=== PATIENT | female | born 1955 | race Caucasian/White ===

== ENCOUNTER 2020-05-04 11:52 | Emergency (ER) | payer MEDICARE, MEDICAID, SELFPAY ==
[2020-05-04 11:56] VITALS: BP 106/73; PULSE 70; RESP 12; TEMP 36.6; O2SAT 100; BMI 24.3
--- NOTE | 2020-05-04 12:02 | XR_ITS ---
WS: [id number] Right knee, 3 views, 05/04/2020 Clinical Data: injury Comparison: None. Findings: No fractures or dislocations are seen. There is narrowing of the medial joint compartment. There is s purring of the posterior patella.. The soft tissues are unremarkable. XR/XR knee RT 3V* 68647 Impression: 1. Negative for fracture. 2. Osteoarthritis with medial joint compartment narrowing and posterior patella r spurring.
--- NOTE | 2020-05-04 12:02 | XR_ITS ---
WS: [id number] Right leg including the tibia and fibula, AP and lateral, 05/04/2020 Clinical Data: injury Comparison: None. Findings: No fractures or dislocations are seen. The tibia and fibula are intact. The soft tissues are normal. The visualized right knee and right ankle show no fractures. There is osteoarthritis of the right pat celso. XR/XR tibia fibula RT 2V 09295 Impression: Negative for fracture.
--- NOTE | 2020-05-04 12:02 | XR_ITS ---
WS: [id number] Right ankle, 3 views, 05/04/2020 Clinical Data: injury Comparison: None. Findings: No fractures or dislocations are seen. The ankle mortise is normal. There is a large posterior superi or spur of the right calcaneus which may be from an old injury. The talus is unremarkable.. There is soft tissue swelling over the medial and lateral malleolus. XR/XR ankle RT min 3V* 72034 Impression: 1. Negative for right ankle fracture. 2. Large posterior superior spur of the calcaneus possibly from an old injury. 3. Soft tissue swelling over medial and lateral malleolus.
--- NOTE | 2020-05-04 12:02 | XR_ITS ---
WS: [id number] Right foot, 3 views, 05/04/2020 Clinical Data: injury Comparison: None. Findings: No fractures or dislocations are seen. No bone destruction or erosion is noted. There are flexion def ormities of the toes. There is diffuse osteoporosis.There is a large posterior superior calcaneal spu r probably from an old injury. XR/XR foot RT min 3V* 70239 Impression: 1. Negative for right foot fracture. 2. Flexion deformities of the toes. 3. Posterior superior spur of the calcaneus probably from an old injury. 4. Diffuse osteoporosis.
--- NOTE | 2020-05-04 12:02 | W.ED.EXTPRO ---
HPI - Extremity Problem General: Chief complaint: Extremity Injury, Lower Stated complaint: R LEG SWOLLEN/ WARM post fall Time Seen by Provider: 05/04/20 11:53 Source: patient and EMS Mode of arrival: EMS Limitations: no limitations History of Present Illness: HPI Narrative: Patient is a 64-year-old female who presents to ED today from the half-way via EMS for complaints of right lower extremity redness, swelling, and pain. Patient is a poor historian. EMS confirms patient is at her baseline mental status. Patient does tell me she fell a few days ago and believes she twisted her right lower extremity and has had pain since. She is nonambulatory at the half-way per EMS and uses a wheelchair. Patient has not been running fevers. She has no known history of previous DVTs. MD Complaint: extremity pain and extremity swelling Onset (ago): day(s) Pain Consistency: constant Location: right and lower extremity Radiation: none Relieving factors: nothing Exacerbating factors: palpation Associated symptoms: Reports no associated symptoms; Deny chest pain or fever(s) Context: other (recent fall/injury) Review of Systems Const: Denies: fever(s), chills, body aches, fatigue or malaise Card: Denies: chest pain Resp: Denies: dyspnea GI: Denies: nausea or vomiting Musc: Reports: extremity pain, extremity swelling and joint pain; Denies: neck pain or back pain Skin/Breast: Reports: other (redness to R LE) Neuro: Denies: numbness in extremities or sensory changes Physical Exam Const: COMMON NORMALS: no acute distress, patient oriented x3 and alert GENERAL APPEARANCE: cooperative ORIENTATION/CONSCIOUSNESS: Yes awake OTHER: at mental baseline per EMS/half-way HENMT: COMMON NORMALS: normocephalic and atraumatic HEAD & SCALP: normocephalic and atraumatic Resp: COMMON NORMALS: normal respiratory effort and clear to auscultation bilaterally AUSCULTATION: clear to auscultation bilaterally Cardio: COMMON NORMALS: regular rate and regular rhythm RATE: regular rate RHYTHM: regular rhythm Extremity: OTHER: pt with redness to anterior R lower extremity extending just distal to knee to about the ankle; she has chronic contractures to her toes; no open wounds/sores; no redness to the foot; DP/PT pulses intact Neuro: COMMON NORMALS: patient oriented x3, moves all extremities, no focal motor deficits and no sensory deficits noted SENSORIUM/ORIENTATION: Yes alert Course Vital Signs: Vital signs: Vital Signs Temperature 97.8 F 05/04/20 11:56 Pulse Rate 66 05/04/20 12:35 Respiratory Rate 14 05/04/20 12:35 Blood Pressure 94/68 05/04/20 12:35 Pulse Oximetry 100 05/04/20 12:35 MDM - Extremity (Nontraumatic) MDM Narrative: Medical decision making narrative: Patient had XRs of her lower extremity performed due to recent injury. These were negative for acute fracture/dislocation. Ultrasound was negative for DVT. Patient is not tachycardic or febrile. She has a normal white count. Leg appears cellulitic on exam. Patient will be placed on antibiotics. Return to ED precautions given to half-way. Lab Data: Labs: Lab Results 05/04/20 05/04/20 Range/Units 12:00 12:00 WBC 6.4 (4.0-10.0) 10^3/ uL RBC 4.66 (4.1-5.3) 10^6/u L Hgb 13.3 (11.5-15.3) g/dL Hct 42.4 (37.0-47.0) % MCV 91.0 (81-99) fL MCH 28.5 (28.0-34.0) pg MCHC 31.4 (30.0-36.0) g/dL RDW 15.0 (12.1-15.1) % Plt Count 393 (130-400) 10^3/c mm MPV 9.2 (7.4-10.4) fL Neut % (Auto) 64.4 % Lymph % (Auto) 23.9 % [place] % (Auto) 8.4 % Eos % (Auto) 0.8 % Baso % (Auto) 0.6 % Neut # (Auto) 4.13 (1.8-7.7) 10^3/u L Lymph # (Auto) 1.5 (0.8-4.8) 10^3/u L [place] # (Auto) 0.5 (0.2-0.9) 10^3/u L Eos # (Auto) 0.1 (0.0-0.8) 10^3/u L Baso # (Auto) 0.0 (0.0-0.1) 10^3/u L Nucleated RBC % (a uto) 0 % Nucleated RBCs # 0.0 /100WBC Sodium 138 (136-145) mmol/L Potassium 4.5 (3.5-5.1) mmol/L Chloride 100 (98-107) mmol/L Carbon Dioxide 29 (22-29) mmol/L Anion Gap 13.5 (5-19) BUN 7 L (8-23) mg/dL Creatinine 0.9 (0.5-0.9) mg/dL GFR Calculation 62.8 L (90-130) mL/min Glucose 94 (65-115) mg/dL Calculated Osmolal ity 284 L (285-295) mOsm/k g Calcium 9.3 (8.5-10.5) mg/dL Total Bilirubin 0.3 (0.15-1.2) mg/dL AST 24 (0-32) U/L ALT 14 (0-33) U/L Alkaline Phosphata se 119 H (35-105) IU/L C-Reactive Protein 68.4 H (0.0-4.9) mg/L Total Protein 7.3 (6.6-8.7) g/dL Albumin 3.4 L (3.5-5.2) g/dL Globulin 3.9 (1.3-4.6) g/dL Imaging Data^: US R lower extremity venous: Radiologist's impression: [address] [address] Ultrasound Report Signed Patient: Nancy Lo #: [id number] : 1955ct#:[id number] Age/Sex: 64 / FADM Date: 05/04/20 Loc: ERRoom/Bed: Attending Dr: Ordering Provider/Ordering MD: Sheree Bowman Date of Service: 05/04/20 Procedure(s): [place] [address] Accession Number(s): [id number] Report Number: [id number] Nancy Lo Age: 64 Gender: F : 1955 Exam Date: 05/04/2020 12:17 Ordering Phys: Sheree Bowman Technologist: Emily Long Exam Location: [facility] [place] Indication: SWELLING REDNESS HISTORY: Lower extremity swelling. PROCEDURES: Venous duplex imaging was performed in only the right lower extremity. The following venous structures were evaluated: common femoral vein, profunda vein, proximal portion of the greater saphenous vein, superficial femoral vein, and the popliteal vein. In addition, the posterior tibial and peroneal trunk were evaluated. FINDINGS: Normal 2-D Doppler and augmentation and compressibility throughout the lower extremity venous structures. Additional imaging through the proximal calf veins also reveals no thrombus. Limited evaluation of the greater saphenous vein is patent with no thrombus. CONCLUSIONS No DVT right lower extremity. Dr. Carli Kessler DO (Electronically Signed) Final Date: 04 May 2020 12:48 S R knee XR: Radiologist's impression: [facility] [address] [place] [address]. [place] [address] XRay Report Signed Patient: WallyNancy Antwon Unit #: [id number] : 1955 Age/Sex: 64 / F ADM Date: 05/04/20 Loc: ER Room/Bed: Attending Dr: Ordering Provider/Ordering MD: Sheree Bowman Date of Service: 05/04/20 Procedure(s): XR knee RT 3V* 08329 Accession Number(s): [id number] Report Number: [id number] WS: [id number] Right knee, 3 views, 05/04/2020 Clinical Data: injury Comparison: None. Findings: No fractures or dislocations are seen. There is narrowing of the medial joint compartment. There is spurring of the posterior patella.. The soft tissues are unremarkable. XR/XR knee RT 3V* 84971 Impression: 1. Negative for fracture. 2. Osteoarthritis with medial joint compartment narrowing and posterior patellar spurring. Dictated By: Lani Chase MD Signed By: Lani Chase MD Signed Date/Time: 05/04/20 1306 DD/ 1305 R tib/fib: Radiologist's impression: [facility] [address] [place] [address] XRay Report Signed Patient: Nancy Lo Unit #: [id number] : 1955 Age/Sex: 64 / F ADM Date: 05/04/20 Loc: ER Room/Bed: Attending Dr: Ordering Provider/Ordering MD: Sheree Bowman Date of Service: 05/04/20 Procedure(s): XR tibia fibula RT 2V 64697 Accession Number(s): [id number] Report Number: [id number] WS: [id number] Right leg including the tibia and fibula, AP and lateral, 05/04/2020 Clinical Data: injury Comparison: None. Findings: No fractures or dislocations are seen. The tibia and fibula are intact. The soft tissues are normal. The visualized right knee and right ankle show no fractures. There is osteoarthritis of the right patella. XR/XR tibia fibula RT 2V 96572 Impression: Negative for fracture. Dictated By: Lani Chase MD Signed By: Lani Chase MD Signed Date/Time: 05/04/20 1305 DD/ 1304 R ankle XR: Radiologist's impression: [address] [address] XRay Report Signed Patient: Nancy Lo Unit #: [id number] : 1955 Age/Sex: 64 / F ADM Date: 05/04/20 Loc: ER Room/Bed: Attending Dr: Ordering Provider/Ordering MD: Sheree Bowman Date of Service: 05/04/20 Procedure(s): XR ankle RT min 3V* 92185 Accession Number(s): [id number] Report Number: [id number] WS: [id number] Right ankle, 3 views, 05/04/2020 Clinical Data: injury Comparison: None. Findings: No fractures or dislocations are seen. The ankle mortise is normal. There is a large posterior superior spur of the right calcaneus which may be from an old injury. The talus is unremarkable.. There is soft tissue swelling over the medial and lateral malleolus. XR/XR ankle RT min 3V* 29888 Impression: 1. Negative for right ankle fracture. 2. Large posterior superior spur of the calcaneus possibly from an old injury. 3. Soft tissue swelling over medial and lateral malleolus. Dictated By: Lani Chase MD Signed By: Lani Chase MD Signed Date/Time: 05/04/20 1308 DD/ 1306 R foot XR: Radiologist's impression: [address] [address] XRay Report Signed Patient: Nancy Lo #: [id number] : 5Acct#:[id number] Age/Sex: 64 / FADM Date: 05/04/20 Loc: [facility]oom/Bed: Attending Dr: Ordering Provider/Ordering MD: Sheree Bowman Date of Service: 05/04/20 Procedure(s): XR foot RT min 3V* 36341 Accession Number(s): [id number] Report Number: [id number] WS: [id number] Right foot, 3 views, 05/04/2020 Clinical Data: injury Comparison: None. Findings: No fractures or dislocations are seen. No bone destruction or erosion is noted. There are flexion deformities of the toes. There is diffuse osteoporosis.There is a large posterior superior calcaneal spur probably from an old injury. XR/XR foot RT min 3V* 36117 Impression: 1. Negative for right foot fracture. 2. Flexion deformities of the toes. 3. Posterior superior spur of the calcaneus probably from an old injury. 4. Diffuse osteoporosis. Dictated By:Lani Chase MD Signed By:Lani Chase MDSigned Date/Time:05/04/20 1310 DD/ 1308 Discharge Plan Discharge Patient Disposition: Home Clinical Impression: Cellulitis of leg without foot, right Condition: Stable Prescriptions: New clindamycin HCl 300 mg capsule 300 mg PO Q6H 7 Days Qty: 28 RF: 0 Discharge Orders: Discharge ED (Routine); Ordered 05/04/20 Ordered By: Sheree Bowman Referrals: Kodak Jane MD [Referring] - Patient Instructions: Cellulitis (ED) Activity Restrictions/Additional Instructions: Patient's right lower extremity was x-rayed due to her recent fall. Her x-rays were negative. Ultrasound of her extremity was performed to rule out DVT-this was negative. She will be treated for right lower extremity cellulitis at this time. She may follow-up with provider for the half-way. Patient needs to return to the emergency department in 48 hours if she is not improving. She needs to return sooner for worsening pain, worsening redness, fevers, or any other concerns you may have. Coding Level of Care Code ED Co Director for Chg Fwd Exam Detailed
[2020-05-04 12:19] LABS: Basophils % 0.6 %; Eosinophils # 0.1 10^3/uL (0.0-0.8); Eosinophils % 0.8 %; Hematocrit 42.4 % (37.0-47.0); Hemoglobin 13.3 g/dL (11.5-15.3); Lymphocytes # 1.5 10^3/uL (0.8-4.8); Lymphocytes % 23.9 %; Mean Corpuscular HGB Conc 31.4 g/dL (30.0-36.0); Mean Corpuscular Hemoglobin 28.5 pg (28.0-34.0); Mean Platelet Volume 9.2 fL (7.4-10.4); Monocytes # 0.5 10^3/uL (0.2-0.9); Monocytes % 8.4 %; Neutrophils # 4.13 10^3/uL (1.8-7.7); Neutrophils % 64.4 %; Nucleated Red Blood Cells % 0 %; Platelet Count 393 10^3/cmm (130-400); Red Blood Count 4.66 10^6/uL (4.1-5.3); White Blood Count 6.4 10^3/uL (4.0-10.0)
[2020-05-04 12:32] VITALS: BP 106/73; PULSE 64; RESP 16; O2SAT 100
[2020-05-04 12:35] VITALS: BP 94/68; PULSE 66; RESP 14; O2SAT 100
[2020-05-04 12:45] LABS: Alanine Aminotransferase 14 U/L (0-33); Albumin Level 3.4 g/dL (3.5-5.2); Alkaline Phosphatase 119 IU/L (35-105); Anion Gap 13.5 (5-19); Aspartate Amino Transferase 24 U/L (0-32); Blood Urea Nitrogen 7 mg/dL (8-23); C Reactive Protein 68.4 mg/L (0.0-4.9); Calcium 9.3 mg/dL (8.5-10.5); Carbon Dioxide 29 mmol/L (22-29); Chloride 100 mmol/L (98-107); Globulin 3.9 g/dL (1.3-4.6); Glomerular Filtration Rate 62.8 mL/min (90-130); Glucose 94 mg/dL (65-115); Osmolality Calculated 284 mOsm/kg (285-295); Potassium 4.5 mmol/L (3.5-5.1); Sodium 138 mmol/L (136-145); Total Bilirubin 0.3 mg/dL (0.15-1.2); Total Protein 7.3 g/dL (6.6-8.7)
[2020-05-04 13:35] VITALS: BP 81/64; PULSE 76; RESP 14; O2SAT 100
--- NOTE | 2020-05-04 14:00 | DCPLANNER ---
manager merchandising was asked to arrange for transportation for patient for discharge transportation back to [facility]. manager merchandising called [place] trip # [place] [id number], spoke with Delisa. manager merchandising called [facility] and gave them the trip number.
[2020-05-04 14:25] VITALS: BP 91/69; PULSE 74; RESP 16; O2SAT 98
== END 2020-05-04 18:35 | disposition home or self-care (01) ==
PROVIDERS: Emergency Provider Physician Assistant
DX: L03.115 Cellulitis of right lower limb (principal); M79.89 Other specified soft tissue disorders; M79.604 Pain in right leg
CPT/HCPCS: 12345; 73562; 73590; 73610; 73630; 80053; 85025; 86140; 93971; 99282; 99283

== ENCOUNTER → 2021-10-01 13:51 | Outpatient (BNVA) | payer MEDICARE, MEDICAID, SELFPAY | PROVIDERS: Visit Provider Nurse Practitioner Family | DX: I96 Gangrene, not elsewhere classified (principal); L89.623 Pressure ulcer of left heel, stage 3; L89.523 Pressure ulcer of left ankle, stage 3 | CPT/HCPCS: 11042; 11045; 87070; 87077; 87176; 87186; 87205; 99203; A6212 ==

== ENCOUNTER → 2021-10-08 13:49 | Outpatient (BNVA) | payer MEDICARE, MEDICAID, SELFPAY | PROVIDERS: Visit Provider Nurse Practitioner Family | DX: I96 Gangrene, not elsewhere classified (principal); L89.623 Pressure ulcer of left heel, stage 3; L89.893 Pressure ulcer of other site, stage 3 | CPT/HCPCS: 99213 ==

== ENCOUNTER → 2021-10-22 13:49 | Outpatient (BNVA) | payer MEDICARE, MEDICAID, SELFPAY | PROVIDERS: Visit Provider Nurse Practitioner Family | DX: I96 Gangrene, not elsewhere classified (principal); L89.623 Pressure ulcer of left heel, stage 3; L89.893 Pressure ulcer of other site, stage 3 | CPT/HCPCS: 99213 ==

== ENCOUNTER → 2021-11-08 10:15 | Outpatient (BNVA) | payer MEDICARE, MEDICAID, SELFPAY | PROVIDERS: Visit Provider Surgery | DX: I96 Gangrene, not elsewhere classified (principal); L89.623 Pressure ulcer of left heel, stage 3; L89.893 Pressure ulcer of other site, stage 3 | CPT/HCPCS: 11044 ==

== ENCOUNTER → 2021-11-12 13:41 | Outpatient (BNVA) | payer MEDICARE, MEDICAID, SELFPAY | PROVIDERS: Visit Provider Nurse Practitioner Family | DX: I96 Gangrene, not elsewhere classified (principal); L89.623 Pressure ulcer of left heel, stage 3; L89.893 Pressure ulcer of other site, stage 3 | CPT/HCPCS: 11042; A6212 ==

== ENCOUNTER → 2021-12-05 14:15 | Outpatient (BNVA) | payer MEDICARE, MEDICAID, SELFPAY | PROVIDERS: Visit Provider Nurse Practitioner Family | DX: I96 Gangrene, not elsewhere classified (principal); L89.623 Pressure ulcer of left heel, stage 3; L89.893 Pressure ulcer of other site, stage 3 | CPT/HCPCS: 11042 ==